=== PATIENT | female | born 1990 | race Caucasian/White ===

== ENCOUNTER 2017-04-30 13:56 | Emergency (ER) | payer SELFPAY ==
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
--- NOTE | 2017-04-30 17:01 | ED ORDER SUMMARY ---
..... Patient: WESLEY GARCIA OrderSheet [facility] VisitID: [id number] [address] [place] [address] 27y, F Registration Date/Time: 04/30/2017 ORDER SHEET Weight: 92.9 kg (stated) Allergies: Augmentin GENERAL ORDERS: US OB 1st Trimester w Transvag (5 weeks ago) Urgent (15:34 04/30/2017 HBivens A.R.N.P.) ([facility] 15:35 Papo) (17:14 Krunal R.N.) MEDICATION ORDERS: IV FLUIDS: ORDER SHEET NOTES: [Electronically signed by Denise Brand R.N. (17:40 04/30/2017)] [Electronically signed by Maryanne RussellR.N.P. (21:31 04/30/2017)] [Electronically locked/signed by Denise Brand R.N. (17:40 04/30/2017)]
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
--- NOTE | 2017-04-30 17:01 | ED ORDER SUMMARY ---
..... Patient: WESLEY GARCIA OrderSheet [facility] VisitID: [id number] [address] [place] [address] 27y, F Registration Date/Time: 04/30/2017 ORDER SHEET Weight: 92.9 kg (stated) Allergies: Augmentin GENERAL ORDERS: US OB 1st Trimester w Transvag (5 weeks ago) Urgent (15:34 04/30/2017 HBivens A.R.N.P.) ([facility] 15:35 Papo) (17:14 Krunal R.N.) MEDICATION ORDERS: IV FLUIDS: ORDER SHEET NOTES: [Electronically signed by Denise Brand R.N. (17:40 04/30/2017)] [Electronically signed by Maryanne RussellR.N.P. (21:31 04/30/2017)] [Electronically locked/signed by Denise Brand R.N. (17:40 04/30/2017)]
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
--- NOTE | 2017-04-30 17:11 | DIAGNOSTIC IMAGING REPORT ---
PROCEDURE: US OB 1ST TRIMESTER W/TRANSVAG INDICATION: PAIN TECHNIQUE: Hylton scale, color, and spectral Doppler transabdominal sonographic images of the first trimester gravid uterus were obtained. COMPARISON: None. FINDINGS: TRANSABDOMINAL SCANS: The gravid uterus is anteverted in position and contains a fundal gestational sac with a moderate residual response. No perigestational hemorrhage. The cervix is closed. A pole with an average crown-rump length of 4 mm is present corresponding to 6 weeks and 0 days. The gestational sac measures at 12 mm and this corresponds to 6 weeks and 1 day. There is detectable cardiac activity in the fetus in a rate of 88 beats per minute. A yolk sac was visible. Maternal ovaries appear normal with a corpus luteum cyst visualized on the left ovary. No free pelvic fluid. IMPRESSION: 1. Single living intrauterine with gestational age of 6 weeks and 1 day and estimated due date of 12/23/2017 2. Closed cervix and no perigestational hemorrhage.
--- NOTE | 2017-04-30 21:32 | ED MAR SUMMARY ---
..... Medication Administration Record [facility] [address], [place] [id number] Patient: WESLEY GARCIA [place] Visit ID: [id number] 27y, F Weight: 92.9 kg Height/Length: 63 in BMI: 36.3 ALLERGIES: Augmentin
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
--- NOTE | 2017-04-30 21:32 | ED MED RECONCILIATION SUMMARY ---
Patient: WESLEY GARCIA Medication Reconciliation Report [facility] VisitID: [id number] [address] [place] [place] [address] 27y, F Registration Date/Time: 04/30/2017 Weight: 92.9 kg Height/Length: 63 in. BMI: 36.3 ALLERGIES: Augmentin The patient's Home Medications are listed below: THE FOLLOWING MEDICATIONS NEED TO BE RECONCILED: Vitamins Oral Ranitidine HCl Oral 150 mg, daily The source(s) of the original Home Medication information: Not obtained. The following Medications were given to the patient in the Emergency Department: None. The following Medications were prescribed to the patient: None.
--- NOTE | 2017-04-30 21:32 | ED MED RECONCILIATION SUMMARY ---
Patient: WESLEY GARCIA Medication Reconciliation Report [facility] VisitID: [id number] [address] [place] [place] [address] 27y, F Registration Date/Time: 04/30/2017 Weight: 92.9 kg Height/Length: 63 in. BMI: 36.3 ALLERGIES: Augmentin The patient's Home Medications are listed below: THE FOLLOWING MEDICATIONS NEED TO BE RECONCILED: Vitamins Oral Ranitidine HCl Oral 150 mg, daily The source(s) of the original Home Medication information: Not obtained. The following Medications were given to the patient in the Emergency Department: None. The following Medications were prescribed to the patient: None.
--- NOTE | 2017-04-30 21:32 | ED MAR SUMMARY ---
..... Medication Administration Record [facility] [address] [place], [place] [id number] Patient: WESLEY GARCIA Lin[place] Visit ID: [id number] 27y, F Weight: 92.9 kg Height/Length: 63 in BMI: 36.3 ALLERGIES: Augmentin
== END 2017-04-30 17:18 | disposition home or self-care (01) ==
LOC: ED SRH 13:56
DX: O99.89 Other specified diseases and conditions complicating pregnancy, childbirth and the puerperium (principal); M79.1 Myalgia; R10.9 Unspecified abdominal pain; Z3A.01 Less than 8 weeks gestation of pregnancy; V43.53XA Car driver injured in collision with pick-up truck in traffic accident, initial encounter; Y93.89 Activity, other specified; Y92.410 Unspecified street and highway as the place of occurrence of the external cause; Y99.8 Other external cause status; Z87.891 Personal history of nicotine dependence; Z79.899 Other long term (current) drug therapy